=== PATIENT | female | born 1935 | race Two or more races ===

== ENCOUNTER 2022-06-14 09:49 | Emergency (ER) | payer BC ==
[~2022-06-14] VITALS: Ht 152.4 cm; Wt 62.1 kg
[2022-06-14] MEDS ORDERED: IV NS 0.9% 500 ML BAG IV ONE (10:00)
--- NOTE | 2022-06-14 10:00 | NUR ---
RECEVED PT 86 YRSFEMALE CAME BY PRAMDIC C/O SYNCOPY AND FELL DOWN AND HEAT HER HEAD C/O LACERATION OF RT SIDE OF FACE WITH WOUND CLOSED NO ACTIVE BLEEDING
--- NOTE | 2022-06-14 10:05 | NUR ---
SEEN BY DR. EISENBERG
--- NOTE | 2022-06-14 10:07 | NUR ---
EKG DONE AT BED SIDE
--- NOTE | 2022-06-14 10:30 | NUR ---
BLOOD DROW BY LAB TACH
[2022-06-14 10:44] LABS: BASOPHILS % (AUTO) 0.3 % (0.0-2.0); EOSINOPHILS % (AUTO) 4.2 % (0.0-6.0); HEMATOCRIT 39 % (33-45); HEMOGLOBIN 12.8 g/dL (11.5-14.8); LYMPHOCYTES # (AUTO) 1.3 K/uL (0.8-4.8); LYMPHOCYTES % (AUTO) 16.2 % (20.0-44.0); MEAN CORPUSCULAR HGB CONC 32 g/dl (31.0-36.0); MEAN CORPUSCULAR VOLUME 97 fL (82-100); MONOCYTES # (AUTO) 0.5 K/uL (0.1-1.30); MONOCYTES % (AUTO) 6.3 % (2.0-12.0); NEUTROPHILS # (AUTO) 5.7 K/uL (1.8-8.9); PLATELET COUNT (AUTO) 202 K/uL (150-450); RED BLOOD CELL COUNT(AUTO) 4.05 MIL/uL (4.0-5.2); WHITE BLOOD COUNT (AUTO) 7.7 K/uL (4.3-11.0)
--- NOTE | 2022-06-14 11:00 | NUR ---
to ct scan of head
--- NOTE | 2022-06-14 11:05 | NUR ---
UA SEND TO LAB
--- NOTE | 2022-06-14 11:45 | NUR ---
ALEXX AT BED SIDE PAULINA MULLEN
[2022-06-14 12:07] LABS: CALCIUM, SERUM 8.8 mg/dL (8.5-10.1); CARBON DIOXIDE 23 mmol/L (21-32); CHLORIDE 103 mmol/L (98-107); CREATININE 1.6 mg/dL (0.6-1.3); GLUCOSE 128 mg/dL (74-106); POTASSIUM 4.8 mmol/L (3.5-5.1); SODIUM SERUM 135 mmol/L (136-145); UREA NITROGEN, BLOOD 22 mg/dL (7-18)
[2022-06-14 12:13] LABS: ALANINE AMINOTRANSFERASE 17 U/L (12-78); ALBUMIN 3.3 g/dL (3.4-5.0); ALKALINE PHOSPHATASE 48 U/L (46-116); ASPARTATE AMINOTRANSFERASE 16 U/L (15-37); BILIRUBIN,DIRECT 0.2 mg/dL (0.0-0.2); BILIRUBIN,TOTAL 1.1 mg/dL (0.2-1.0); TOTAL PROTEIN, SERUM 6.7 g/dL (6.4-8.2)
--- NOTE | 2022-06-14 12:15 | NUR ---
WALKING WITH STADY GAITE DINESS ANY WEEKNESSS
--- NOTE | 2022-06-14 12:30 | NUR ---
WALKING WITH STADY GAIT NO
--- NOTE | 2022-06-14 12:43 | NUR ---
TANMAY SWAP SEDDE TO LAB
--- NOTE | 2022-06-14 12:50 | NUR ---
Patient discharged to home in stable condition. Written and verbal after care instructions given. Patient verbalizes understanding of instruction.
[2022-06-14 12:55] VITALS: BP 168/68
[2022-06-14 13:03] LABS: BILIRUBIN,URINE NEGATIVE (NEGATIVE); COLOR,URINE YELLOW (YELLOW); LEUKOCYTE ESTERASE ,URINE TRACE (NEGATIVE); NITRITE, URINE NEGATIVE (NEGATIVE); PROTEIN,URINE NEGATIVE (NEGATIVE); UGLUCOSE NEGATIVE (NEGATIVE); UROBILINOGEN,URINE 0.2 EU/dL (0.2)
[2022-06-14 13:10] LABS: BACTERIA,URINE None seen /HPF (None Seen); RBC,URINE 0-2 /HPF (0-2); SQUAMOUS EPITHELIAL CELL,UR Few /HPF (None Seen); WBC,URINE 0-2 /HPF (0-3)
== END 2022-06-14 12:56 | disposition home or self-care (01) ==
LOC: ER 09:52
DX: R55 Syncope and collapse (principal); I10 Essential (primary) hypertension; Z88.2 Allergy status to sulfonamides; Z88.8 Allergy status to other drugs, medicaments and biological substances
CPT/HCPCS: 99285; 96360; 70450; 71045; 93005; 87804; 85025; 80048; 80076; 81001; 36415; 84484; 85730; J7040